=== PATIENT | male | born 1945 | race Asian ===

== ENCOUNTER 2016-06-13 19:06 | Inpatient (IN) | payer OTHER, MEDICAID ==
[~2016-06-13] VITALS: Ht 165.1 cm; Wt 83.1 kg
[2016-06-13 20:25] LABS: BASOPHIL % 0.1 % (0-2); PLATELET COUNT 206 x10^3mcL (130-400); RED CELL DISTRIBUTION WIDTH 12.8 % (11.5-14.5)
[2016-06-13 20:51] LABS: CALCIUM 8.5 mg/dL (8.5-10.1); CARBON DIOXIDE 24.7 mmol/L (21-32); CREATININE SERUM 1.7 mg/dL (0.7-1.3); POTASSIUM SERUM 3.6 mmol/L (3.5-5.1)
[2016-06-13 20:56] LABS: ALBUMIN 3.9 g/dL (3.4-5.0); BILIRUBIN TOTAL 1.01 mg/dL (0.20-1.00); TOTAL PROTEIN, SERUM 8.2 g/dL (6.4-8.2)
[2016-06-13 21:23] LABS: UA SPECIFIC GRAVITY 1.025 (1.005-1.035); microscopic required? YES; urine erythrocyte 3+ (NEGATIVE)
[2016-06-14 00:34] VITALS: BP 129/78
[2016-06-14 00:45] VITALS: Ht 165.1 cm; Wt 83.1 kg
[2016-06-14 02:04] LABS: FREE T4 1.08 ng/dL (0.76-1.46); FREE THYROXINE INDEX 2.8 ug/dL (1.4-4.5)
[2016-06-14 02:15] LABS: T3 TOTAL 0.95 ng/mL
[2016-06-14 02:43] LABS: CHOLESTEROL/HDL RATIO 4.8
[2016-06-14 06:50] VITALS: BP 107/42
[2016-06-14 06:54] VITALS: BP 147/84
[2016-06-14 07:07] LABS: BASOPHIL % 0.1 % (0-2); PLATELET COUNT 191 x10^3mcL (130-400)
[2016-06-14 07:08] LABS: CALCIUM 8.1 mg/dL (8.5-10.1); CARBON DIOXIDE 23.5 mmol/L (21-32); CREATININE SERUM 1.6 mg/dL (0.7-1.3); MAGNESIUM 1.9 mg/dL (1.8-2.4); PHOSPHOROUS 2.2 mg/dL (2.5-4.9); POTASSIUM SERUM 3.4 mmol/L (3.5-5.1)
[2016-06-14 09:10] VITALS: BP 155/82
[2016-06-14 17:46] VITALS: BP 139/85
[2016-06-14 22:30] VITALS: BP 145/89
[2016-06-15 05:33] VITALS: BP 131/79
[2016-06-15 06:49] LABS: CALCIUM 7.7 mg/dL (8.5-10.1); CARBON DIOXIDE 26.4 mmol/L (21-32); CREATININE SERUM 1.4 mg/dL (0.7-1.3); MAGNESIUM 1.7 mg/dL (1.8-2.4); PHOSPHOROUS 2.8 mg/dL (2.5-4.9); POTASSIUM SERUM 3.2 mmol/L (3.5-5.1)
[2016-06-15 06:50] LABS: BASOPHIL % 0.3 % (0-2); PLATELET COUNT 160 x10^3mcL (130-400); RED CELL DISTRIBUTION WIDTH 12.8 % (11.5-14.5)
[2016-06-15 09:45] VITALS: BP 127/76
[2016-06-15 14:55] VITALS: BP 136/81
[2016-06-15 17:50] VITALS: BP 171/93
[2016-06-15 21:58] VITALS: BP 140/77
[2016-06-16 06:36] LABS: BASOPHIL % 0.5 % (0-2); PLATELET COUNT 188 x10^3mcL (130-400); RED CELL DISTRIBUTION WIDTH 13.3 % (11.5-14.5)
[2016-06-16 06:51] VITALS: BP 144/82
[2016-06-16 06:55] LABS: CALCIUM 8.3 mg/dL (8.5-10.1); CARBON DIOXIDE 27.8 mmol/L (21-32); CHLORIDE SERUM 107 mmol/L (98-107); CREATININE SERUM 1.2 mg/dL (0.7-1.3); GFR1 > 60 mL/min; GLUCOSE SERUM 91 mg/dL (74-106); MAGNESIUM 1.9 mg/dL (1.8-2.4); PHOSPHOROUS 2.6 mg/dL (2.5-4.9); POTASSIUM SERUM 3.9 mmol/L (3.5-5.1); SODIUM SERUM 142 mmol/L (136-145)
[2016-06-16 09:18] VITALS: BP 138/76
[2016-06-16] MEDS ORDERED: KEFLEX500 M1 PO ×2 (11:25→12:12)
[2016-06-16] MEDS ORDERED: PYRIDIUM100 MG PO (11:26)
[2016-06-16] MEDS ORDERED: LAC PO (11:27)
[2016-06-16] MEDS ORDERED: LIPI10 PO (11:31)
[2016-06-16] MEDS ORDERED: ZES10 PO (11:31)
[2016-06-16] MEDS ORDERED: TOPROL XL25 MG PO (11:32)
[2016-06-16 12:47] VITALS: BP 135/76
[2016-06-16 13:00] VITALS: BP 148/89
== END 2016-06-16 14:44 | disposition home or self-care (01) | DRG 668 ==
LOC: ED 19:06 → DU 22:23
PROVIDERS: Emergency Medicine; Family Medicine; Urology; ADMIT Family Medicine
PROC: 0T778DZ Dilation of Left Ureter with Intraluminal Device, Via Natural or Artificial Opening Endoscopic (ICD-10-PCS; 2016-06-14)
PROC: 0TC78ZZ Extirpation of Matter from Left Ureter, Via Natural or Artificial Opening Endoscopic (ICD-10-PCS; principal; 2016-06-14 19:30)
DX: N13.2 Hydronephrosis with renal and ureteral calculous obstruction (principal); I50.41 Acute combined systolic (congestive) and diastolic (congestive) heart failure; E87.1 Hypo-osmolality and hyponatremia; N17.0 Acute kidney failure with tubular necrosis; R80.8 Other proteinuria; E87.6 Hypokalemia; M62.838 Other muscle spasm; E83.39 Other disorders of phosphorus metabolism; E80.6 Other disorders of bilirubin metabolism; E78.5 Hyperlipidemia, unspecified; Z68.32 Body mass index [BMI] 32.0-32.9, adult; F17.210 Nicotine dependence, cigarettes, uncomplicated
CPT/HCPCS: 83880; 84439; 99406; C2625; J0696; J2250; J2270; J2405; J2704; J3010; J3490; J7030; J7120; Q0092; Q9967